=== PATIENT | female | born 1985 | race African-American/Black ===

== ENCOUNTER 2019-04-04 13:51 | Emergency (ER) | payer OTHER ==
[2019-04-04 13:56] VITALS: BMI 35.9
--- NOTE | 2019-04-04 15:17 | PDOC ---
History of Present Illness - General Chief Complaint: Injury Stated Complaint: FALL Time Seen by Provider: 04/04/19 14:55 - History of Present Illness Initial Comments: 04/04/19 15:14 33-year-old female complaining of left-sided pain after going down a step and having her right leg go through the step injuring her left side. She complains of headache after hitting her head on concrete post injury headache and vomiting. No visual changes she does feel dizzy. She also has left shoulder and hip pain Past History - Past Medical History Allergies/Adverse Reactions: Allergies Allergy/AdvReac Type Severity Reaction Status Date / Time No Known Allergies Allergy Verified 04/04/19 13:56 Home Medications: Ambulatory Orders Insulin (Levemir) [Levemir Flexpen -] 30 units SQ DAILY 07/03/14 Insulin Aspart [Novolog Flexpen] 30 units SQ DAILY 07/03/14 Vit/Iron Fumarate/FA [ Tablet] 1 tab PO DAILY 07/03/14 Asthma: No Cancer: No Cardiac Disorders: No Diabetes: Yes (IDDM) HTN: No Seizures: No Thyroid Disease: No - Reproductive History (#): 4 Para: 2 - Psycho Social/Smoking Cessation Hx Smoking History: Never smoked Have you smoked in the past 12 months: No Information on smoking cessation initiated: No Hx Alcohol Use: No Drug/Substance Use Hx: No Substance Use Type: None Hx Substance Use Treatment: No Review of Systems - Review of Systems Constitutional: Yes: See HPI Neurological: Yes: See HPI *Physical Exam - Vital Signs Last Vital Signs Temp Pulse Resp BP Pulse Ox 97.0 F L 90 18 129/81 100 04/04/19 13:54 04/04/19 13:54 04/04/19 13:54 04/04/19 13:54 04/04/19 13:54 - Physical Exam 04/04/19 15:15 GENERAL: The patient is awake, alert, and fully oriented, in no acute distress. HEAD: Normal with no signs of trauma. EYES: sclera anicteric, conjunctiva clear. ENT: Ears normal tympanic membranes normal oropharynx clear uvula midline NECK: Normal range of motion LUNGS: Breath sounds equal, clear to auscultation bilaterally. No wheezes, and no crackles. HEART: S1 and S2 without murmur, rub or gallop. ABDOMEN: Soft, nontender, normoactive bowel sounds. No guarding, no rebound. No masses. EXTREMITIES: Normal range of motion, no edema. No clubbing or cyanosis. No cords, erythema, or tenderness. NEUROLOGICAL: Cranial nerves II through XII grossly intact. Normal speech, normal gait. PSYCH: Normal mood, normal affect. SKIN: Warm, Dry, normal turgor, no rashes or lesions noted. ED Treatment Course - RADIOLOGY Radiology Studies Ordered: Category Date Time Status HEAD CT WITHOUT CONTRAST [CT] Stat CT Scan 04/04/19 15:13 Ordered CHEST PA & LAT [RAD] Stat Radiology 04/04/19 15:13 Ordered Medical Decision Making - Medical Decision Making 04/04/19 15:17 Polytrauma work-up will transfer to the main emergency room Discharge - Discharge Information Problems reviewed: Yes Clinical Impression/Diagnosis: Concussion - Follow up/Referral Referrals: Taurus Draper MD [Primary Care Provider] - - Patient Discharge Instructions - Post Discharge Activity
--- NOTE | 2019-04-04 15:57 | PDOC ---
History of Present Illness - General Chief Complaint: Injury Stated Complaint: FALL Time Seen by Provider: 04/04/19 14:55 - History of Present Illness Initial Comments: 04/04/19 16:17 HPI: 33 y/o F with hx of IDDM, left big toe amputation, chronic low back pain s/p L4/ 5 fusion presenting following a fall. She was walking up the stairs and when she was on the third step her right foot went through the stair and she fell on her left side. Now with pain on entire left side including shoulder, ribs, hip, knee, foot. She also states she fell back on her head and had an episode of emesis shortly after. Denies LOC or any current nausea. She denies chest pain, SOB, numbness, tingling, abd pain, seizure, incontinence. She reuqired EMS help because pain prevented getting up PMHx: as noted above ROS: as noted SHx: Denies tobacco use; no alcohol use; no rec drugs Allergies: NKDA ROS: GENERAL/CONSTITUTIONAL: No fever or chills. No weakness. HEAD, EYES, EARS, NOSE AND THROAT: No change in vision. No ear pain or discharge. No sore throat. CARDIOVASCULAR: No chest pain or shortness of breath RESPIRATORY: No cough, wheezing, or hemoptysis. GASTROINTESTINAL: No nausea, vomiting, diarrhea or constipation. GENITOURINARY: No dysuria, frequency, or change in urination. MUSCULOSKELETAL: +back pain/left sided pain SKIN: No rash NEUROLOGIC: No headache, vertigo, loss of consciousness, or change in strength/ sensation. ENDOCRINE: No increased thirst. No abnormal weight change HEMATOLOGIC/LYMPHATIC: No anemia, easy bleeding, or history of blood clots. ALLERGIC/IMMUNOLOGIC: No hives or skin allergy. PE: GENERAL: Awake, alert, and fully oriented, no acute distress HEAD: No signs of trauma, normocephalic, atraumatic EYES: EOMI, sclera anicteric, conjunctiva clear ENT: Auricles normal inspection, hearing grossly normal, nares patent, oropharynx clear without exudates. Moist mucosa NECK: Normal ROM, no lymphadenopathy, left paraspinal ttp, no midline ttp LUNGS: No increased work of breathing, symmetrical chest rise, clear to auscultation bilaterally, no wheezes, crackles or rhonchi HEART: Regular rate, regular rhythm, normal S1 and S2, no murmur, peripheral pulses 2+ and equal bilaterally. ABDOMEN: Soft, nondistended, nontender, normoactive bowel sounds. No guarding, no rebound. No masses. No CVAT MUSCULOSKELETAL: Normal inspection, left knee small 0.5 cm abrasion and left hand 0.5 cm abrasion NEUROLOGICAL: Cranial nerves II through XII grossly intact. Normal speech, no focal sensorimotor deficits, 5/5 str SKIN: Warm, Dry, normal turgor, no rashes or lesions noted Past History - Past Medical History Allergies/Adverse Reactions: Allergies Allergy/AdvReac Type Severity Reaction Status Date / Time No Known Allergies Allergy Verified 04/04/19 13:56 Home Medications: Ambulatory Orders Insulin (Levemir) [Levemir Flexpen -] 30 units SQ DAILY 07/03/14 Insulin Aspart [Novolog Flexpen] 30 units SQ DAILY 07/03/14 Vit/Iron Fumarate/FA [ Tablet] 1 tab PO DAILY 07/03/14 Asthma: No Cancer: No Cardiac Disorders: No Diabetes: Yes (IDDM) HTN: No Seizures: No Thyroid Disease: No - Reproductive History (#): 4 Para: 2 - Psycho Social/Smoking Cessation Hx Smoking History: Never smoked Have you smoked in the past 12 months: No Information on smoking cessation initiated: No Hx Alcohol Use: No Drug/Substance Use Hx: No Substance Use Type: None Hx Substance Use Treatment: No *Physical Exam - Vital Signs Last Vital Signs Temp Pulse Resp BP Pulse Ox 97.0 F L 90 18 129/81 100 04/04/19 13:54 04/04/19 13:54 04/04/19 13:54 04/04/19 13:54 04/04/19 13:54 Medical Decision Making - Medical Decision Making 04/04/19 18:34 33 y/o F with hx of IDDM, left big toe amputation, chronic low back pain s/p L4/ 5 fusion presenting following a fall with pain on entire left body and reports decreased ROM. VSS, AF. PE with minor left knee and left hand abrasion; FROM intact but with pain. -ct head, XR ribs, hip, leg, foot -robaxin, oxy 04/04/19 18:35 CT head negative XR with no obvious fx pain improved patient ambulating without assist will DC home; discussed with patient and she is comfortable with plan Discharge - Discharge Information Problems reviewed: Yes Clinical Impression/Diagnosis: Contusion of soft tissue Leg pain Qualifiers: Laterality: left Qualified Code(s): M79.605 - Pain in left leg Condition: Improved Disposition: HOME - Follow up/Referral Referrals: Taurus Draper MD [Primary Care Provider] - Mina Blankenship MD [Staff Physician] - Tad Sarah MD [Staff Physician] - - Patient Discharge Instructions Patient Printed Discharge Instructions: DI for Contusion Additional Instructions: Additional Instructions: Please return to the emergency department with any new or worsening symptoms or concerns. Please follow up with your primary care physician within 72 hours. Please followup with orthopedics for further evaluation if pain symptoms persist. You may take tylenol and ibuprofen for pain control. Information for Dr Blankenship and Dr Sarah from orthopedics has been provided in your packet - Post Discharge Activity
[2019-04-04] MEDS ORDERED: oxyCODONE HCL 5 MG TABLET PO ONE (16:38)
[2019-04-04] MEDS ORDERED: METHOCARBAMOL 500 MG TABLET PO ONE (16:38)
--- NOTE | 2019-04-04 16:38 | PDOC ---
Attending Attestation - Resident Resident Name: Nandini Berman - ED Attending Attestation I have performed the following: I have examined & evaluated the patient, The case was reviewed & discussed with the resident, I agree w/resident's findings & plan, Exceptions are as noted - HPI HPI: 04/04/19 17:49 33yo female with L leg and back pain after a fall through a broken stair board. Pt states she fell through when walking down the stairs, leaned back and hit her head. no loc. Pt c/o pain along L side of body. Unsure when tetanus was last updated. Pt able to ambulate after the fall, neuro intact. Pt c/o pain. Hx of chronic pain on oxycodone for chronic LBP and fusion hx. Pt states she follows with Dr. Angel Villagomez. - Physicial Exam PE: 04/04/19 17:55 Gen: aaox3, nad heart: +s1s2 reg lungs: cta b/l, no chest wall ttp back: mildine ttp lumbar spine over incision site that is well healed that hte patient states is chronic, no other stepoffs, deformities, ttp, L hip ttp, but able to range the hip ext: no c/c/e, knee ttp, but able to range the knee, pulses intact neuro: cn ii-xii grossy intact, no focal deficits - Medical Decision Making 04/04/19 17:57 33yo female with fall through a broken board on the stairs with leg pain and head injury -no loc -c/o chronic back pain- had 2 prior fusions in low back -pt with L lateral hip pain leg pain from abrasions -pt states pain in left leg when she walks, but has been ambulatory since the fall -pt able to walk with a steady gait with the resident -xrays obtained that do not show an acute fx -discussed xrays will require official read -discussed limitations of xray findings -pending head ct -will monitor and reassess 04/04/19 17:59 pt will need ortho follow up if pain continues pending ct 04/04/19 18:[address] neg stable for dc to home pt has tolerated po in the department
[2019-04-04] MEDS ORDERED: METHOCARBAMOL 500 MG TABLET ONE (16:42)
[2019-04-04] MEDS ORDERED: oxyCODONE HCL 5 MG TABLET ONE (16:43)
[2019-04-04] MEDS ORDERED: DIPHTH,PERTUSS(ACELL),TET 0.5 ML DISP.SYRIN IM ONE ×2 (16:48→16:54)
[2019-04-04 18:44] VITALS: BP 122/78; PULSE 86; TEMP 98
== END 2019-04-04 18:44 | disposition home or self-care (01) ==
LOC: JERFT 13:51 → JER 13:51
DX: M79.605 Pain in left leg (principal); W18.39XA Other fall on same level, initial encounter; Y93.89 Activity, other specified; Y92.89 Other specified places as the place of occurrence of the external cause; S80.12XA Contusion of left lower leg, initial encounter; E11.9 Type 2 diabetes mellitus without complications; G89.29 Other chronic pain; M54.5 Low back pain
CPT/HCPCS: 70450-TC; 71046-TC-FY; 71101-TC-LT-FY; 71101-TC-RT-FY; 73523-TC-FY; 73552-TC-LT-FY; 73564-TC-LT-FY; 73590-TC-LT-FY; 73610-TC-LT-FY; 73630-TC-LT; 99283-25

== ENCOUNTER 2019-04-10 06:19 | Emergency (ER) | payer OTHER ==
[2019-04-10 06:53] VITALS: TEMP 97.8; BMI 37.3
[2019-04-10] MEDS ORDERED: SODIUM CHLORIDE 1,000 ML IV STA (07:22)
[2019-04-10] MEDS ORDERED: DEXTROSE 5%-NORMAL SALINE 1,000 ML IV ONE (07:32)
--- NOTE | 2019-04-10 07:33 | PDOC ---
History of Present Illness - General Chief Complaint: Blood Sugar Problem Stated Complaint: BLOOD SUGAR PROBLEM Time Seen by Provider: 04/10/19 07:20 History Source: Patient Exam Limitations: No Limitations, Clinical Condition - History of Present Illness Initial Comments: aMnuel Robert is a 33 yo F w a hx of IDDM, left big toe amputation, chronic low back pain s/p L4/5 fusion who presents to the [facility] er BIBEMS after she was hypoglycemic in the field in the low 40's. Upon presentation to the ER her Glucose was elevated to the 70's after EMS administered glucagon IM bc they could not establish IV access. The patient states that yestrday evening at 8 pm she noted her glucose to be elevated in the mid 400's so she took 15 units of her long acting insulin formulation instead of her usual 5 unit dosage. She then woke up in the middle of the night and noted herself to be sweating, shaking, feeling weak, checked her glucose and noted it to be low in the 40's so she called EMS to come to the hospital for evaluation. Here in the ER she states she feels tired and lethargic but is otherwise asymptomatic. Patient denies any chest or abdominal pain, denies SOB, difficulty breathing, denies dysuria, frequency, urgency. Denies recent fevers, chills, or infections. PCP: Taurus Draper Endo: None would like a referrall Social Hx: Denies smoking, drinking, or other substance usage Allergies: NKA, NKDA PSH: Multiple back surgeries, 4 C-sections Past History - Past Medical History Allergies/Adverse Reactions: Allergies Allergy/AdvReac Type Severity Reaction Status Date / Time No Known Allergies Allergy Verified 04/04/19 13:56 Home Medications: Ambulatory Orders Fluoxetine HCl [Prozac] 40 mg PO DAILY 04/10/19 Gabapentin 300 mg PO 1200 04/10/19 Gabapentin 300 mg PO BID 04/10/19 Insulin Glargine,Hum.rec.anlog [Basaglar Kwikpen U-100] 45 unit SQ BID 04/10/19 Linaclotide [Linzess] 145 mcg PO DAILY 04/10/19 Metoclopramide HCl [Reglan] 5 mg PO TID 04/10/19 Nitrofurantoin 100 gm MC BID 5 Days #10 powder 04/10/19 Oxymorphone HCl [Oxymorphone HCl ER] 30 mg PO BID 04/10/19 Pantoprazole Sodium 40 mg PO DAILY 04/10/19 Asthma: No Cancer: No Cardiac Disorders: No COPD: No Diabetes: Yes (IDDM) HTN: No Seizures: No Thyroid Disease: No - Reproductive History (#): 4 Para: 2 - Immunization History Td Vaccination: Yes TDAP Vaccination: Yes Immunization Up to Date: Yes - Psycho Social/Smoking Cessation Hx Smoking History: Never smoked Have you smoked in the past 12 months: No Information on smoking cessation initiated: No Hx Alcohol Use: No Drug/Substance Use Hx: No Substance Use Type: None Hx Substance Use Treatment: No Review of Systems - Review of Systems Able to Perform ROS?: Yes Comments:: CONSTITUTIONAL: Present: Fatigue Absent: fever, no chills EYES: Absent: visual changes ENT: Absent: ear pain, no sore throat CARDIOVASCULAR: Absent: chest pain, no palpitations RESPIRATORY: Absent: cough, no SOB GI: Absent: abdominal pain, no nausea, no vomiting, no constipation, no diarrhea GENITOURINARY: Absent: dysuria, no frequency, no hematuria MUSKULOSKELETAL: Present: Chronic back pain Absent: no arthralgia, no myalgia SKIN: Absent: rash NEURO: Absent: headache *Physical Exam - Vital Signs Last Vital Signs Temp Pulse Resp BP Pulse Ox 97.8 F 81 20 104/66 99 04/10/19 06:51 04/10/19 06:51 04/10/19 06:51 04/10/19 06:51 04/10/19 06:51 - Physical Exam GENERAL: Lethargic. Well-appearing, well-nourished. No apparent distress. HEENT: Normocephalic, atraumatic. PERRL, EOM intact. CARDIOVASCULAR: Normal S1, S2. Regular rate and rhythm. PULMONARY: No evidence of respiratory distress. Lungs clear to auscultation bilaterally. No wheezing, rales or rhonchi. ABDOMEN: Soft, non-distended, non-tender. EXTREMITIES: Normal ROM in all four extremities. No gross deformities. SKIN: Warm, dry. No rash NEUROLOGICAL: No focal neurological deficits. ED Treatment Course - LABORATORY CBC & Chemistry Diagram: 04/10/19 08:00 04/10/19 07:42 - ADDITIONAL ORDERS Additional order review: Laboratory Results 04/10/19 06:22 POC Glucometer 72 04/10/19 06:22 POC Glucometer 72 Medical Decision Making - Medical Decision Making Manuel Robert is a 33 yo F w a hx of IDDM, left big toe amputation, chronic low back pain s/p L4/5 fusion who presents to the [facility] er BIBEMS after she was hypoglycemic in the field in the low 40's. Upon presentation to the ER her Glucose was elevated to the 70's after EMS administered glucagon IM bc they could not establish IV access. The patient states that yestrday evening at 8 pm she noted her glucose to be elevated in the mid 400's so she took 15 units of her long acting insulin formulation instead of her usual 5 unit dosage. She then woke up in the middle of the night and noted herself to be sweating, shaking, feeling weak, checked her glucose and noted it to be low in the 40's so she called EMS to come to the hospital for evaluation. Here in the ER she states she feels tired and lethargic but is otherwise asymptomatic. Vital Signs Temp Pulse Resp BP Pulse Ox 97.8 F 81 20 104/66 99 04/10/19 06:51 04/10/19 06:51 04/10/19 06:51 04/10/19 06:51 04/10/19 06:51 DDx IBNLT: DKA, HHNS, electrolyte/metabolic disturbance, arrhythmia, UTI/Pylo Plan: Labs, Urine, EKG, CXR, re-assess Labs: Mild anemia appears to be baseline Urine: Suggests patient has a UTI - no prior cultures in this hospital. Treating with nitrofurantoin in ED and script sent to pharmacy. CXR: Unremarkable EKG: NS rate of 91, narrow complexes, possible LAE, normal axis, QTc 472, UT 146 , no ST elevations or depressions, no abnormal TWI's Re-assessment: Patient eating a bagel and cream cheese at bedside without any active complaints Disposition: Likely DC after ED observation Discharge - Discharge Information Problems reviewed: Yes Clinical Impression/Diagnosis: Hypoglycemia Condition: Improved Disposition: HOME - Admission No - Additional Discharge Information Prescriptions: Nitrofurantoin 100 gm MC BID 5 Days #10 powder - Follow up/Referral Referrals: Taurus Draper MD [Primary Care Provider] - Ga Alva MD [Staff Physician] - - Patient Discharge Instructions Patient Printed Discharge Instructions: DI for Hypoglycemia, DI for Hyperglycemia -- Adult Additional Instructions: You came into the ER after an episode of low blood sugar after taking too much of your insulin. We watched you in the hospital and you had no symptoms. Your blood sugar was on the normal low end of the spectrum the entire time you were in the hospital. Please make sure to eat complex carbohydrates today. Please be careful in the future not to take too much insulin. We are giving you a referral to an environmental marketer - Dr. Alva to help manage your diabetic medications. Please call him up and schedule a follow up appointment in the next 3 to 5 days. Your urine shows you have a urinary tract infection. We have given you the first antibiotic in the ER and sent the rest to your pharmacy. Please make sure to go and pick it up and take all of the antibiotics. Do not stop taking the antibiotics until you have taken all of them. Please also schedule a follow up appointment with your primary care doctor in the next 3 to 5 days to make sure you are well and being taken care of. You ER and hospital workup is not complete without this follow up. Come back to the ER immediately if you feel weak, lightheaded, nauseous, or have any other new or worsening concerns. Thank you for coming to [facility]. We hope you feel better soon! Print Language: WOLOF - Post Discharge Activity
--- NOTE | 2019-04-10 07:53 | PDOC ---
*Physical Exam - Vital Signs Last Vital Signs Temp Pulse Resp BP Pulse Ox 97.8 F 81 20 104/66 99 04/10/19 06:51 04/10/19 06:51 04/10/19 06:51 04/10/19 06:51 04/10/19 06:51 ED Treatment Course - LABORATORY CBC & Chemistry Diagram: 04/10/19 08:00 04/10/19 07:42 - ADDITIONAL ORDERS Additional order review: Laboratory Results 04/10/19 06:22 POC Glucometer 72 04/10/19 06:22 POC Glucometer 72 Medical Decision Making - Medical Decision Making 04/10/19 07:48 Patient seen as pre-attending with Dr. Boo (PGY-2) 33 y/o female with a PMHx of poorly controlled IDDM (w/previous admission @ [facility] for DKA + toe amputation 2/2 infection), gastritis and chronic back pain (s /p L4/L5 fusion) BIBEMS for hypoglycemia (BS 40's in the filed s/p IM glucagon). States she took her normal dose of Humalog (32) and Vasalog (54 units) yesterday following a home blood sugar reading in the low 400's and called EMS after she woke up in the middle of the night feeling weak, sweaty and her measured BS was in the 40's. Reports she hasn't been sleeping for the last 5 days and five children with viral URI like symptoms. Skipped meals 2/2 to her symptoms. Does not follow with an design draftsman. 10 point ROS negative for fevers/chills, no N/V. Does report her urine smells like a cat, no dysuria/increased urgency frequency. VSS, Well appearing, no abdominal TTP on PE. Will check labs to r/o DKA vs. HHS, test, r/o infection as etiology of hyperglycemia. Patient requires referral to endocrinology. Will call patient's pharmacy to confirm medications 04/10/19 09:33 No electrolyte derangement, Glucose 74 Patient resting comfortably, tolerating PO intake Cardiac Monitoring as patient took unknown amount of LA insulin w/in last 8-10 hours. UA pending 04/10/19 09:45 As per Medicine Cabinet: Basigilar (Glargine) (45 mg BID) - full medication list documented in EMR 04/10/19 09:58 Reassessed @ bedside Reports she took LA insulin @ 8 pm, - t 1/2 of 12 hours, low clinical concern for sugar spike, does not require further monitoring in the ED at this time. UA pending 04/10/19 10:00 UA shows 3+ LE, 5155 bacteria - will treat for uncomplicated cystitis and d/c home with endocrinology referral and outpatient antibiotic therapy. UCx pending Clinical Impression: Cystitis, Hyperglycemia possibly 2/2 to infection Discharge - Discharge Information Problems reviewed: Yes Clinical Impression/Diagnosis: Hypoglycemia Condition: Improved Disposition: HOME - Additional Discharge Information Prescriptions: Nitrofurantoin 100 gm MC BID 5 Days #10 powder - Follow up/Referral Referrals: Taurus Draper MD [Primary Care Provider] - Ga Alva MD [Staff Physician] - - Patient Discharge Instructions Patient Printed Discharge Instructions: DI for Hypoglycemia, DI for Hyperglycemia -- Adult Additional Instructions: You came into the ER after an episode of low blood sugar after taking too much of your insulin. We watched you in the hospital and you had no symptoms. Your blood sugar was on the normal low end of the spectrum the entire time you were in the hospital. Please make sure to eat complex carbohydrates today. Please be careful in the future not to take too much insulin. We are giving you a referral to an design draftsman - Dr. Alva to help manage your diabetic medications. Please call him up and schedule a follow up appointment in the next 3 to 5 days. Your urine shows you have a urinary tract infection. We have given you the first antibiotic in the ER and sent the rest to your pharmacy. Please make sure to go and pick it up and take all of the antibiotics. Do not stop taking the antibiotics until you have taken all of them. Please also schedule a follow up appointment with your primary care doctor in the next 3 to 5 days to make sure you are well and being taken care of. You ER and hospital workup is not complete without this follow up. Come back to the ER immediately if you feel weak, lightheaded, nauseous, or have any other new or worsening concerns. Thank you for coming to [facility]. We hope you feel better soon! Print Language: CITIZEN OF [place] - Post Discharge Activity
[2019-04-10 08:20] LABS: BASO % 0.4 % (0-2.0); HEMATOCRIT 31.3 % (32.4-45.2); HEMOGLOBIN 10.2 GM/dL (10.7-15.3); LYMPH % 15.4 % (8-40); MCH 26.2 pg (25.7-33.7); MCHC 32.6 g/dl (32.0-36.0); MEAN CELL VOLUME 80.3 fl (80-96); MEAN PLT VOLUME 8.8 fl (7.5-11.1); MONO % 7.3 % (3.8-10.2); NEUT % 75.9 % (42.8-82.8); PLATELET COUNT 298 K/MM3 (134-434); RDW 15.1 % (11.6-15.6); WHITE BLOOD COUNT 7.7 K/mm3 (4.0-10.0)
[2019-04-10 08:49] LABS: ALBUMIN 3.4 g/dl (3.4-5.0); ALK PHOS 124 U/L (45-117); ANION GAP 5 MMOL/L (8-16); BILIRUBIN,TOTAL 0.1 mg/dL (0.2-1); BLOOD UREA NITROGEN 14.6 mg/dL (7-18); CALCIUM 9.1 mg/dL (8.5-10.1); CHLORIDE 106 mmol/L (98-107); CO2 30 mmol/L (21-32); CREATININE 0.8 mg/dL (0.55-1.3); GLUCOSE,RANDOM 70 mg/dL (74-106); POTASSIUM 3.5 mmol/L (3.5-5.1); SGOT/AST 16 U/L (15-37); SGPT/ALT 22 U/L (13-61); SODIUM 140 mmol/L (136-145); TOT PROT 6.8 g/dl (6.4-8.2)
[2019-04-10 09:36] LABS: VENOUS PC02 62.9 mmHg (38-52); VENOUS PH 7.27 (7.31-7.41); VENOUS PO2 56.4 mmHg (28-48)
[2019-04-10 09:49] LABS: EPI CELLS 8.2 /HPF (0-5/HPF); HYALINE CASTS 18 /lpf (0-8); URINE APPEARANCE TURBID; URINE BACTERIA 5155.9 /hpf (NEGATIVE); URINE BILIRUBIN NEGATIVE (NEGATIVE); URINE COLOR YELLOW; URINE GLUCOSE (UA) 3+ (NEGATIVE); URINE KETONE NEGATIVE (NEGATIVE); URINE LEUK ESTERASE 3+ (NEGATIVE); URINE NITRITE NEGATIVE (NEGATIVE); URINE PROTEIN NEGATIVE (NEGATIVE); URINE UROBILINOGEN 0.2 mg/dL (0.2-1.0); URINE WBC 148 /hpf (0-5)
--- NOTE | 2019-04-10 10:00 | PDOC ---
Attending Attestation - Resident Resident Name: Delmar Boo - ED Attending Attestation I have performed the following: I have examined & evaluated the patient, The case was reviewed & discussed with the resident, I agree w/resident's findings & plan - HPI HPI: 04/10/19 09:38 33-year-old female with history of insulin-dependent diabetes presents with hypoglycemic episode after taking additional insulin last night in the setting of hyperglycemia. Patient has been in her usual state of health without any focal complaints, at baseline has elevated glucose levels on her twice daily standing insulin and sliding scale. Last night, had decreased appetite so did not eat dinner, but took usual insulin doses for hyperglycemia of 274. Patient awoke during the night confused and was found to be hypoglycemic to 40. EMS was activated by , given glucagon, presents here more alert. All 5 of patient's children have had gastroenteritis over the last week, she has had minimal sleep, otherwise has no complaints herself. Review of systems is otherwise negative including urinary symptoms. - Physicial Exam PE: 04/10/19 10:00 Vital signs normal, afebrile. Asleep but arousable to voice, conversant and following commands, oriented No jaundice or pallor Moist mucosa Heart is regular, lungs are clear Abdomen is benign without focal guarding or rebound or tenderness Neurologically intact - Medical Decision Making 04/10/19 10:11 33y/o F h/o IDDM p/w hypoglycemia in the setting of insulin with minimal PO intake. Glucose improved after glucagon and PO intake, HD stable here with nonfocal exam. labs wnl, no leukocytosis, normal Cr and glucose. no dka. UA with elevated wbc, would treat for UTI given diabetic with change in appetite last night ekg normal, cxr pending received iv fluids, tolerated PO feels much better, will reassess and dispo accordingly with endocrine f/u Heart Score/ECG Review #1 ECG reviewed & interpreted by me at: 09:35 General ECG Interpretation: Sinus Rhythm, Normal Rate (91), Normal Intervals ( qtc 472), No acute ischemic changes
[2019-04-10] MEDS ORDERED: NITROFURANTOIN MACROCRYSTAL 50 MG CAPSULE (FP) PO SCH (10:15)
[2019-04-10 11:40] LABS: URINE RBC 6.2 /hpf (0-4)
[2019-04-10 11:52] VITALS: BP 145/94; PULSE 98
--- NOTE | 2019-04-11 11:23 | EKG ---
Test Reason : Blood Pressure : / mmHG Vent. Rate : 091 BPM Atrial Rate : 091 BPM P-R Int : 146 ms QRS Dur : 090 ms QT Int : 384 ms P-R-T Axes : 060 054 045 degrees QTc Int : 472 ms NORMAL SINUS RHYTHM POSSIBLE LEFT ATRIAL ENLARGEMENT BORDERLINE ECG NO PREVIOUS ECGS AVAILABLE Confirmed by Juan Pablo Dominguez MD ([id number]) on 04/11/2019 11:22:39 AM Referred By: Confirmed By:Juan Pablo Dominguez MD
== END 2019-04-10 12:41 | disposition home or self-care (01) ==
LOC: JER 06:19
DX: E10.649 Type 1 diabetes mellitus with hypoglycemia without coma (principal); Z79.4 Long term (current) use of insulin; N39.0 Urinary tract infection, site not specified; Z89.412 Acquired absence of left great toe; Z98.1 Arthrodesis status
CPT/HCPCS: 36415; 71045-TC-FY; 80053; 81003; 82010; 82550; 82553; 82803; 82962; 84484; 84703; 85025; 93005; 93010; 99285-25